=== PATIENT | female | born 1945 | race Caucasian/White ===

== ENCOUNTER → 2017-02-13 | Outpatient (CLI) | payer MEDICARE, OTHER ==
[2017-02-13 16:45] LABS: Anion Gap 10 mmol/L; Blood Urea Nitrogen 26 mg/dL (7-17); Calcium 9.2 mg/dL (8.4-10.2); Carbon Dioxide 33 mmol/L (22-30); Chloride 98 mmol/L (98-107); Glucose 96 mg/dL (74-99); Magnesium 2.4 mg/dL (1.6-2.3); Non-African American GFR(MDRD) >60 (>60 ml/min/1.73 sqM); Phosphorous 4.1 mg/dL (2.5-4.5); Potassium 4.1 mmol/L (3.5-5.1); Sodium 141 mmol/L (137-145)
== END | disposition home or self-care (01) ==
LOC: LABWHC1 15:56
PROVIDERS: ATTEND Internal Medicine Critical Care Medicine
DX: R60.9 Edema, unspecified (principal)
CPT/HCPCS: 36415; 80048; 83735; 84100; 99213

== ENCOUNTER → 2017-07-10 | Outpatient (CLI) | payer MEDICARE, OTHER ==
--- NOTE | 2017-07-10 09:47 | US ---
EXAMINATION TYPE: US abdomen complete DATE OF EXAM: 07/10/2017 COMPARISON: NONE CLINICAL HISTORY: R18.8 Other ascites. COPD, PT ON O2, difficult breathing , pt on steroids for water retention EXAM MEASUREMENTS: Liver Length: 15.2 cm Gallbladder Wall: 0.2 cm CBD: 0.2 cm Spleen: 7.1 cm Right Kidney: 8.5 x 3.5 x 3.6 cm Left Kidney: 9.1 x 4.7 x 5.0 cm Pancreas: Obscured by bowel gas Liver: wnl there is no ascites. Gallbladder: wnl Evidence for sonographic Barroso's sign: No CBD: wnl Spleen: wnl Right Kidney: No hydronephrosis or masses seen Left Kidney: 1.9 x 2.0 x 1.9 cm superior mid pole dromedary hump vs mass Upper IVC: wnl Abd Aorta: Obscured by overlying bowel gas There is no ascites. The liver is homogenous. The intrahepatic portion of the IVC is within normal limits. There is no e vidence of cholelithiasis. Common bile duct is unremarkable. The spleen is unremarkable. Kidneys show normal cortical medullary differentiation, there is a lobular contour to the left kidney. IMPRESSION: Findings within left kidney thought to be due to lobular cortex rather than mass, short i nterval follow-up could be performed to assess for stability or alternatively contrast-enhanced CT or MRI could be performed for additional evaluation. Exam is limited.
== END | disposition home or self-care (01) ==
LOC: RADUSWWP 07:28
PROVIDERS: ATTEND Internal Medicine
DX: R18.8 Other ascites (principal)
CPT/HCPCS: 76700

== ENCOUNTER 2017-09-08 17:04 | Inpatient (IN) | payer MEDICARE, OTHER ==
[2017-09-08] MEDS ORDERED: IPRATROPIUM-ALBUTEROL 3 ML NEB INHALATION STA (18:24)
[2017-09-08] MEDS ORDERED: NITROGLYCERIN OINT 1 INCH/GM PACKET TOPICAL STA (18:24)
[2017-09-08] MEDS ORDERED: SODIUM CHLORIDE 0.9% 1,000 ML IV STA ×2 (18:24)
[2017-09-08] MEDS ORDERED: FUROSEMIDE 10 MG/ML 4 ML VIAL IV STA (18:24)
--- NOTE | 2017-09-08 18:29 | ED ---
SOB HPI - General Chief Complaint: Shortness of Breath Stated Complaint: Fluid retention sent by PCP Time Seen by Provider: 09/08/17 18:09 Source: patient, RN notes reviewed, old records reviewed Mode of arrival: wheelchair Limitations: no limitations - History of Present Illness Initial Comments: 72-year-old female presented to emergency Department chief complaint of shortness of breath and swelling of her abdomen and lower legs that has been worse over the past week. She reports that she has history of COPD. She is on multiple breathing treatments and inhalers. She reports that she's been having any increased productive cough. Patient states that she's had no fever or chills. She reports that she's also noticed an increase in weight gain, stating that her weight was 178 pounds today. Patient states that she has had no abdominal pain, no nausea or vomiting, normal bowel movements and urination. She states that she has had no hemoptysis, denies any upper respiratory congestion or sore throat. Patient has history of skin cancer and glaucoma. - Related Data Home Medications Medication Instructions Recorded Confirmed ALPRAZolam [Xanax] 0.25 mg PO TID PRN 09/08/17 09/08/17 Albuterol Inhaler [Ventolin Hfa 2 puff INHALATION RT-Q6H PRN 09/08/17 09/08/17 Inhaler] Azithromycin 250 mg PO MOWEFR 09/08/17 09/08/17 Budesonide-Formot 160-4.5 Mcg 2 puff INHALATION RT-BID 09/08/17 09/08/17 [Symbicort 160-4.5 Mcg Inhaler] Ipratropium-Albuterol Nebulize 3 ml INHALATION RT-TID 09/08/17 09/08/17 [Duoneb 0.5 mg-3 mg/3 ml Soln] L.acidoph,Paracasei, B.lactis 1 cap PO DAILY 09/08/17 09/08/17 [Probiotic] Loratadine [Claritin] 10 mg PO DAILY 09/08/17 09/08/17 Pramipexole [Mirapex] 0.5 mg PO QAM 09/08/17 09/08/17 Pramipexole [Mirapex] 1 mg PO BID 09/08/17 09/08/17 Spironolactone [Aldactone] 25 mg PO BID 09/08/17 09/08/17 predniSONE 5 mg PO DAILY 09/08/17 09/08/17 Allergies Allergy/AdvReac Type Severity Reaction Status Date / Time No Known Allergies Allergy Verified 09/08/17 19:51 Review of Systems ROS Statement: Those systems with pertinent positive or pertinent negative responses have been documented in the HPI. ROS Other: All systems not noted in ROS Statement are negative. Past Medical History Past Medical History: Cancer, COPD, Eye Disorder Additional Past Medical History / Comment(s): HX OF SKIN CA, GLAUCOMA History of Any Multi-Drug Resistant Organisms: None Reported Past Surgical History: Tonsillectomy Additional Past Surgical History / Comment(s): skin cancer Past Anesthesia/Blood Transfusion Reactions: No Reported Reaction Past Psychological History: Anxiety, Depression Smoking Status: Current some day smoker - Past Family History Son(s) Family Medical History: Deep Vein Thrombosis (DVT) General Exam - General Exam Comments Initial Comments: This is a pleasant 72-year-old female. Limitations: no limitations General appearance: alert, in no apparent distress Head exam: Present: atraumatic, normocephalic, normal inspection Eye exam: Present: normal appearance, PERRL, EOMI. Absent: scleral icterus, conjunctival injection, periorbital swelling ENT exam: Present: normal exam, mucous membranes moist Neck exam: Present: normal inspection. Absent: tenderness, meningismus, lymphadenopathy Respiratory exam: Present: wheezes, rhonchi, decreased breath sounds ( has diminished bilateral lung sounds, diffuse wheezing and rhonchi noted.). Absent : normal lung sounds bilaterally, respiratory distress, rales, stridor Cardiovascular Exam: Present: regular rate, normal rhythm, normal heart sounds. Absent: systolic murmur, diastolic murmur, rubs, gallop, clicks GI/Abdominal exam: Present: soft, distended. Absent: tenderness, guarding, rebound, rigid, normal bowel sounds (Diminished bowel sounds. Patient has a distended abdomen.) Extremities exam: Present: full ROM, normal capillary refill, pedal edema (3+ bilateral pedal edema.), other (She was able to ambulate without difficulty.). Absent: normal inspection, tenderness, joint swelling, calf tenderness Back exam: Present: normal inspection Neurological exam: Present: alert, oriented X3, CN II-XII intact Psychiatric exam: Present: normal affect, normal mood Skin exam: Present: warm, dry, intact, normal color. Absent: rash Course Vital Signs 09/08/17 09/08/17 09/08/17 17:28 18:30 19:19 Temperature 98.1 F Pulse Rate 85 93 91 Respiratory 24 18 Rate Blood Pressure 120/69 128/76 O2 Sat by Pulse 95 98 Oximetry 09/08/17 09/08/17 19:31 20:41 Temperature Pulse Rate 91 96 Respiratory 18 Rate Blood Pressure 132/78 O2 Sat by Pulse 97 Oximetry - Reevaluation(s) Reevaluation #1: 09/08/17 19:47 After patient was taken to x-ray and had to be laid down on the ground she had severe shortening of breath. She does report she feels better sitting up and leaning forward. Patient's lungs were examined she does have decreased lung sounds bilaterally. Medical Decision Making - Medical Decision Making 72-year-old female presents emergency department with increased bilateral leg swelling, increased shortness of breath. She has a history of COPD. Given a DuoNeb treatment. When patient lays backward she has significant dyspnea. Patient also complains of significant abdominal distention over the past few months. CT abdomen and pelvis was performed shows no evidence of any masses. Patient labwork was reviewed and negative for any significant abnormality's. Negative BNP. Negative cardiac enzymes. At this time patient admitted for shortness of breath, orthopnea, pedal edema, and abdominal distention. Patient' s previous pulmonal diseases. Continued with breathing treatments. - Lab Data Result diagrams: 09/08/17 18:40 09/08/17 18:40 Lab Results 09/08/17 09/08/17 09/08/17 Range/Units 18:40 18:40 18:40 WBC 9.5 (3.8-10.6) k/uL RBC 3.99 (3.80-5.40) m/uL Hgb 12.0 (11.4-16.0) gm/dL Hct 39.6 (34.0-46.0) % MCV 99.2 (80.0-100.0) fL MCH 30.2 (25.0-35.0) pg MCHC 30.4 L (31.0-37.0) g/dL RDW 14.0 (11.5-15.5) % Plt Count 348 (150-450) k/uL Neutrophils % 78 % Lymphocytes % 12 % Monocytes % 6 % Eosinophils % 1 % Basophils % 1 % Neutrophils # 7.4 (1.3-7.7) k/uL Lymphocytes # 1.2 (1.0-4.8) k/uL Monocytes # 0.6 (0-1.0) k/uL Eosinophils # 0.1 (0-0.7) k/uL Basophils # 0.1 (0-0.2) k/uL Hypochromasia Slight PT (9.0-12.0) sec INR (<1.2) APTT (22.0-30.0) sec D-Dimer (<0.60) mg/L FEU Sodium 139 (137-145) mmol/L Potassium 4.5 (3.5-5.1) mmol/L Chloride 97 L (98-107) mmol/L Carbon Dioxide 36 H (22-30) mmol/L Anion Gap 6 mmol/L BUN 12 (7-17) mg/dL Creatinine 0.59 (0.52-1.04) mg/dL Est GFR (MDRD) Af Amer >60 (>60 ml/min/1.73 sqM) Est GFR (MDRD) Non-Af >60 (>60 ml/min/1.73 sqM) Glucose 92 (74-99) mg/dL Calcium 9.3 (8.4-10.2) mg/dL Magnesium 2.2 (1.6-2.3) mg/dL Total Bilirubin 0.2 (0.2-1.3) mg/dL AST 19 (14-36) U/L ALT 29 (9-52) U/L Alkaline Phosphatase 77 (38-126) U/L Total Creatine Kinase 78 (30-135) U/L CK-MB (CK-2) 3.5 H* (0.0-2.4) ng/mL CK-MB (CK-2) Rel Index 4.5 Troponin I <0.012 (0.000-0.034) ng/mL NT-Pro-B Natriuret Pep pg/mL Total Protein 6.2 L (6.3-8.2) g/dL Albumin 3.6 (3.5-5.0) g/dL Urine Color Urine Appearance (Clear) Urine pH (5.0-8.0) Ur Specific Vernal (1.001-1.035) Urine Protein (Negative) Urine Glucose (UA) (Negative) Urine Ketones (Negative) Urine Blood (Negative) Urine Nitrite (Negative) Urine Bilirubin (Negative) Urine Urobilinogen (<2.0) mg/dL Ur Leukocyte Esterase (Negative) 09/08/17 09/08/17 09/08/17 Range/Units 18:40 18:40 19:09 WBC (3.8-10.6) k/uL RBC (3.80-5.40) m/uL Hgb (11.4-16.0) gm/dL Hct (34.0-46.0) % MCV (80.0-100.0) fL MCH (25.0-35.0) pg MCHC (31.0-37.0) g/dL RDW (11.5-15.5) % Plt Count (150-450) k/uL Neutrophils % % Lymphocytes % % Monocytes % % Eosinophils % % Basophils % % Neutrophils # (1.3-7.7) k/uL Lymphocytes # (1.0-4.8) k/uL Monocytes # (0-1.0) k/uL Eosinophils # (0-0.7) k/uL Basophils # (0-0.2) k/uL Hypochromasia PT 10.3 (9.0-12.0) sec INR 1.0 (<1.2) APTT 23.5 (22.0-30.0) sec D-Dimer 0.38 (<0.60) mg/L FEU Sodium (137-145) mmol/L Potassium (3.5-5.1) mmol/L Chloride (98-107) mmol/L Carbon Dioxide (22-30) mmol/L Anion Gap mmol/L BUN (7-17) mg/dL Creatinine (0.52-1.04) mg/dL Est GFR (MDRD) Af Amer (>60 ml/min/1.73 sqM) Est GFR (MDRD) Non-Af (>60 ml/min/1.73 sqM) Glucose (74-99) mg/dL Calcium (8.4-10.2) mg/dL Magnesium (1.6-2.3) mg/dL Total Bilirubin (0.2-1.3) mg/dL AST (14-36) U/L ALT (9-52) U/L Alkaline Phosphatase (38-126) U/L Total Creatine Kinase (30-135) U/L CK-MB (CK-2) (0.0-2.4) ng/mL CK-MB (CK-2) Rel Index Troponin I (0.000-0.034) ng/mL NT-Pro-B Natriuret Pep 73 pg/mL Total Protein (6.3-8.2) g/dL Albumin (3.5-5.0) g/dL Urine Color Light Yellow Urine Appearance Clear (Clear) Urine pH 7.5 (5.0-8.0) Ur Specific Vernal 1.007 (1.001-1.035) Urine Protein Negative (Negative) Urine Glucose (UA) Negative (Negative) Urine Ketones Negative (Negative) Urine Blood Negative (Negative) Urine Nitrite Negative (Negative) Urine Bilirubin Negative (Negative) Urine Urobilinogen <2.0 (<2.0) mg/dL Ur Leukocyte Esterase Negative (Negative) 09/08/17 19:29 EKG shows normal sinus rhythm. Ventricular rate 88 bpm. IN interval 1:30 milliseconds. QRS duration 80 ms. QRS T QTc is 382/462 ms. No evidence of ST elevation or T-wave inversion. No evidence of atrial or ventricular arrhythmias. EKG was performed at 1911. - Radiology Data Radiology results: report reviewed CT abdomen and pelvis shows small umbilical hernia, sigmoid diverticulosis, no sign of acute abdomen and pelvis. Atherosclerotic vascular disease. Chest x-ray shows mild pulmonary fibrotic changes. No acute lung disease. No change compared to old exam. Disposition Clinical Impression: Orthopnea, COPD exacerbation, Bilateral edema of lower extremity Disposition: ADMITTED IP TO THIS HOSP Condition: Stable Referrals: Venkata Quarles MD [Primary Care Provider] - 1-2 days Time of Disposition: 21:36
[2017-09-08 18:59] LABS: Basophils # (A) 0.1 k/uL (0-0.2); Basophils % (A) 1 %; CH 30.8; CHCM 31.2; Eosinophils # (A) 0.1 k/uL (0-0.7); Eosinophils % (A) 1 %; HCT 39.6 % (34.0-46.0); HDW 2.44; Hypochromasia Slight; Luc # (Auto) 0.16; Luc % (Auto) 2; Lymphocytes # (A) 1.2 k/uL (1.0-4.8); Lymphocytes % (A) 12 %; MCH 30.2 pg (25.0-35.0); MCHC 30.4 g/dL (31.0-37.0); MCV 99.2 fL (80.0-100.0); Mean Platelet Volume 7.5; Monocytes # (A) 0.6 k/uL (0-1.0); Monocytes % (A) 6 %; Neutrophils # (A) 7.4 k/uL (1.3-7.7); Neutrophils % (A) 78 %; RBC 3.99 m/uL (3.80-5.40); WBC 9.5 k/uL (3.8-10.6); WBC (Perox) 10.02
[2017-09-08 19:14] LABS: Appearance,Urine Clear (Clear); Bilirubin,Urine Negative (Negative); Glucose,Urine (UA) Negative (Negative); Ketones,Urine Negative (Negative); Leukocyte Esterase,Urine Negative (Negative); Nitrite,Urine Negative (Negative); PH, Urine 7.5 (5.0-8.0); Protein,Urine Negative (Negative); Specific Gravity,Urine 1.007 (1.001-1.035); UA Billing (MACRO vs. MICRO) CHEM; Urobilinogen,Urine <2.0 mg/dL (<2.0)
[2017-09-08 19:16] LABS: ALT 29 U/L (9-52); AST 19 U/L (14-36); Alkaline Phosphatase 77 U/L (38-126); Anion Gap 6 mmol/L; Blood Urea Nitrogen 12 mg/dL (7-17); Calcium 9.3 mg/dL (8.4-10.2); Carbon Dioxide 36 mmol/L (22-30); Chloride 97 mmol/L (98-107); Glucose 92 mg/dL (74-99); Magnesium 2.2 mg/dL (1.6-2.3); Non-African American GFR(MDRD) >60 (>60 ml/min/1.73 sqM); Potassium 4.5 mmol/L (3.5-5.1); Sodium 139 mmol/L (137-145); Total Bilirubin 0.2 mg/dL (0.2-1.3); Total Protein 6.2 g/dL (6.3-8.2)
[2017-09-08 19:19] LABS: Creatine Kinase 78 U/L (30-135)
[2017-09-08 19:31] LABS: Troponin I <0.012 ng/mL (0.000-0.034)
[2017-09-08 19:33] LABS: Partial Thromboplastin Time 23.5 sec (22.0-30.0); Prothrombin Time 10.3 sec (9.0-12.0)
[2017-09-08 19:38] LABS: Creatine Kinase MB 3.5 ng/mL (0.0-2.4)
--- NOTE | 2017-09-08 19:52 | XR ---
EXAMINATION TYPE: XR chest 2V DATE OF EXAM: 09/08/2017 COMPARISON: 11/06/2014 HISTORY: Short of breath TECHNIQUE: Frontal and lateral views of the chest are obtained. FINDINGS: There is no heart failure. There is slight coarsening of interstitial markings. There is n o pleural effusion. Thoracic aorta is atheromatous. There are chest leads. Bony thorax is intact. IMPRESSION: Mild pulmonary fibrotic changes. No acute lung disease. No change compared to old exam. No heart failure.
--- NOTE | 2017-09-08 19:54 | XR ---
EXAMINATION TYPE: XR KUB DATE OF EXAM: 09/08/2017 COMPARISON: NONE HISTORY: Abdominal pain TECHNIQUE: Single view FINDINGS: Supine view of the upper abdomen shows no sign of intestinal obstruction or pneumoperitoneu m. There is no sign of pleural effusion. IMPRESSION: Negative limited abdomen exam.
[2017-09-08] MEDS ORDERED: FUROSEMIDE 10 MG/ML 2 ML VIAL IV ONE (20:06)
[2017-09-08] MEDS ORDERED: RX INFO: IV CONTRAST WAS GIVEN 1 EACH MISC MISCELLANE PRN (20:06)
[2017-09-08] MEDS ORDERED: MORPHINE SULFATE 4 MG/ML SYRINGE IVP STA (20:07)
[2017-09-08] MEDS ORDERED: MORPHINE SULFATE 2 MG/ML SYRINGE IVP ONE ×2 (20:34→20:36)
--- NOTE | 2017-09-08 21:25 | CT ---
EXAMINATION TYPE: CT abdomen pelvis w con DATE OF EXAM: 09/08/2017 COMPARISON: NONE HISTORY: Bilateral leg swelling, abdominal distention and SOB CT DLP: 1162.6 mGycm Automated exposure control for dose reduction was used. TECHNIQUE: Helical acquisition of images was performed from the lung bases through the pelvis. CONTRAST: Performed without Oral Contrast and with IV Contrast, patient injected with 100 mL of Omnipaque 300. FINDINGS: The lung bases are clear of consolidation. There is no pleural effusion. Liver shows no focal defect. Spleen pancreas gallbladder appear normal. Bile ducts are not dilated. There is no adrenal mass. Kidneys show satisfactory contrast opacification. There is no hydronephrosi s. There is no retroperitoneal adenopathy. There is no ascites. There are numerous diverticula in the sigmoid colon. Bladder distends smoothly. There is no sign of a pelvic mass. Appendix appears normal . I see no intestinal wall thickening. Bony structures are intact. I see no focal bone destruction. There is a small umbilical hernia that c ontains fat. IMPRESSION: SMALL UMBILICAL HERNIA. SIGMOID DIVERTICULOSIS. NO SIGN OF ACUTE ABDOMEN AND PELVIS. ATHEROSCLEROTIC VASCULAR DISEASE.
[2017-09-08] MEDS ORDERED: IPRATROPIUM-ALBUTEROL 3 ML NEB INHALATION PRN (21:58)
[2017-09-08] MEDS ORDERED: ALBUTEROL NEBULIZED 2.5 MG/3 ML INHALATION PRN (22:02)
[2017-09-08] MEDS ORDERED: ALPRAZolam 0.25 MG TAB PO PRN (22:02)
[2017-09-08] MEDS: FUROSEMIDE 10 MG/ML 4 ML VIAL IV SCH (22:35)
[2017-09-08 23:24] VITALS: BMI 32.7
[2017-09-09] MEDS: methylPREDNISolone SOD SUCCI 125 MG/2 ML VIAL IV SCH ×3 (00:27→13:03)
[2017-09-09 04:36] LABS: Troponin I <0.012 ng/mL (0.000-0.034)
[2017-09-09 04:40] LABS: Creatine Kinase MB 2.8 ng/mL (0.0-2.4)
[2017-09-09] MEDS: FUROSEMIDE 10 MG/ML 4 ML VIAL IV SCH ×3 (06:14→23:06)
[2017-09-09] MEDS: LACTOBACILLUS ACIDOPH & BULGAR 1 EACH PACKET PO SCH (07:17)
[2017-09-09] MEDS: LORATADINE 10 MG TAB PO SCH (07:17)
[2017-09-09] MEDS: ENOXAPARIN 40 MG/0.4 ML SYRINGE SQ SCH (07:17)
[2017-09-09] MEDS: PRAMIPEXOLE 0.5 MG TAB PO SCH (07:17)
[2017-09-09] MEDS: SPIRONOLACTONE 25 MG TAB PO SCH ×2 (07:18→21:43)
[2017-09-09 07:52] LABS: Glucose,Whole Blood 156 mg/dL (75-99)
[2017-09-09] MEDS ORDERED: SYMBICORT 160-4.5 MCG INHALER INHALATION SCH (08:00)
[2017-09-09] MEDS: IPRATROPIUM-ALBUTEROL 3 ML NEB INHALATION SCH ×5 (08:08→19:35)
[2017-09-09] MEDS: CHLORPHEN-HYDROcod 8-10mg/5ml 5 ML ORAL.SYRG PO SCH ×2 (10:30→20:40)
[2017-09-09 11:16] LABS: Troponin I <0.012 ng/mL (0.000-0.034)
[2017-09-09 11:20] LABS: Creatine Kinase MB 2.7 ng/mL (0.0-2.4)
[2017-09-09 11:26] LABS: Glucose,Whole Blood 207 mg/dL (75-99)
--- NOTE | 2017-09-09 11:28 | P.CNPUL ---
History of Present Illness Consult date: 09/09/17 Reason for consult: dyspnea History of present illness: 72-year-old female patient with severe COPD and chronic hypoxic respiratory failure, chronic hypercapnic respiratory failure, cor pulmonale with previous history of right-sided heart failure.. The patient is an FEV1 of 26% of predicted. The patient is coming in to the hospital because of increased fluid overload and lower extremities edema. Overnight the patient received Lasix 40 mg IV every 8 hours and her lower extremities edema has improved significantly. CAT scan of the abdomen and pelvis was done. It showed some mild diverticulosis. There is no evidence of any ascites or any other abnormalities. She has cushingoid features. She is on the prednisone 5 mg by mouth daily basis. She has required multiple steroid treatments over the years for COPD exacerbation and that made her white obese and cushingoid. She has also gained weight. She has history of skin cancer and glaucoma. She probably is a CO2 retainer knowing that she has a chronic metabolic alkalosis with a bicarb level in the serum of 36. A based on blood gas has not been done. She claims that she has a CPAP/BiPAP machine at home which she hasn't been using on a regular basis. Review of Systems Constitutional: Reports daytime sleepiness, Reports fatigue, Reports poor appetite, Reports weakness Eyes: denies blurred vision, denies bulging eye, denies decreased vision Ears: deny: decreased hearing, ear discharge, earache Ears, nose, mouth and throat: Reports as per HPI Cardiovascular: Reports decreased exercise tolerance, Reports dyspnea on exertion, Reports leg edema, Reports shortness of breath Respiratory: Reports cough, Reports dyspnea, Reports sleep apnea, Reports wheezing Gastrointestinal: Reports bloating Genitourinary: Denies dysuria, Denies hematuria Musculoskeletal: bilateral: ankle swelling, absent: ankle pain, ankle stiffness Integumentary: Denies pruritus, Denies rash Neurological: Denies numbness, Denies weakness Psychiatric: Denies anxiety, Denies depression Endocrine: Denies fatigue, Denies weight change Past Medical History Past Medical History: Cancer, COPD, Eye Disorder Additional Past Medical History / Comment(s): Morbid obesity, severe COPD, end- stage with an FEV1 of 26% of predicted, chronic hypercapnic respiratory failure , chronic hypoxic respiratory failure, cor pulmonale, possible obstructive sleep apnea, glucoma, skin cancer, which she notes features related to chronic steroid use History of Any Multi-Drug Resistant Organisms: None Reported Past Surgical History: Tonsillectomy Additional Past Surgical History / Comment(s): skin cancer Past Anesthesia/Blood Transfusion Reactions: No Reported Reaction Past Psychological History: Anxiety, Depression Smoking Status: Current some day smoker - Past Family History Son(s) Family Medical History: Deep Vein Thrombosis (DVT) Medications and Allergies Home Medications Medication Instructions Recorded Confirmed Type ALPRAZolam [Xanax] 0.25 mg PO TID PRN 09/08/17 09/08/17 History Albuterol Inhaler [Ventolin Hfa 2 puff INHALATION RT-Q6H PRN 09/08/17 09/08/17 History Inhaler] Azithromycin 250 mg PO MOWEFR 09/08/17 09/08/17 History Budesonide-Formot 160-4.5 Mcg 2 puff INHALATION RT-BID 09/08/17 09/08/17 History [Symbicort 160-4.5 Mcg Inhaler] Ipratropium-Albuterol Nebulize 3 ml INHALATION RT-TID 09/08/17 09/08/17 History [Duoneb 0.5 mg-3 mg/3 ml Soln] L.acidoph,Paracasei, B.lactis 1 cap PO DAILY 09/08/17 09/08/17 History [Probiotic] Loratadine [Claritin] 10 mg PO DAILY 09/08/17 09/08/17 History Pramipexole [Mirapex] 0.5 mg PO QAM 09/08/17 09/08/17 History Pramipexole [Mirapex] 1 mg PO BID 09/08/17 09/08/17 History Spironolactone [Aldactone] 25 mg PO BID 09/08/17 09/08/17 History predniSONE 5 mg PO DAILY 09/08/17 09/08/17 History Allergies Allergy/AdvReac Type Severity Reaction Status Date / Time No Known Allergies Allergy Verified 09/08/17 23:02 Physical Exam Vitals: Vital Signs Temp Pulse Pulse Pulse Resp BP BP 09/09/17 08:24 88 09/09/17 08:09 88 09/09/17 08:00 94 89 16 09/09/17 07:00 97.8 F 94 16 138/81 09/09/17 00:16 98.1 F 89 20 149/86 09/08/17 22:17 148/78 09/08/17 22:15 51 L 18 09/08/17 20:41 96 18 132/78 09/08/17 19:31 91 09/08/17 19:19 91 09/08/17 18:30 93 18 128/76 09/08/17 17:28 98.1 F 85 24 120/69 Pulse Ox 09/09/17 08:24 09/09/17 08:09 09/09/17 08:00 09/09/17 07:00 99 09/09/17 00:16 92 L 09/08/17 22:17 09/08/17 22:15 09/08/17 20:41 97 09/08/17 19:31 09/08/17 19:19 09/08/17 18:30 98 09/08/17 17:28 95 Intake and Output 09/08/17 09/09/17 09/09/17 22:59 06:59 14:59 Intake Total 200 Balance 200 Intake: Amount of Fluid Infused ( 200 ml) Other: Voiding Method Bedside Commode Bedside Commode # Voids 2 Weight 81.193 kg 81.193 kg Patient Weight 09/10/17 06:59 Weight 81.193 kg Morbidly obese, cushingoid features, calm and comfortable, not in acute distress or distress. She is arousable. She is awake and alert and she is following commands and answering questions.Head exam was generally normal. There was no scleral icterus or corneal arcus. Mucous membranes were moist. Neck is short and supple and the patient is a significant crowding of the posterior oropharynx with a Mallampati class IV. Lung sounds are diminished bilaterally along with some scattered expiratory wheezes throughout the lung his bilaterally. No dullness to percussion. No crackles. Heart sounds are positive for S1-S2, no cervical murmurs appreciated.Cardiac exam revealed the PMI to be normally situated and sized. The rhythm was regular and no extrasystoles were noted during several minutes of auscultation. The first and second heart sounds were normal and physiologic splitting of the second heart sound was noted. There were no murmurs, rubs, clicks, or gallops.Abdominal exam revealed normal bowel sounds. The abdomen was soft, non-tender, and without masses, organomegaly, or appreciable enlargement of the abdominal aorta. The patient has a tiny umbilical hernia. Extremities reveal trace edema and there is no cyanosis or clubbing. Neurologically patient is awake and alert and there is no focal neurological deficit.Examination of the skin revealed no evidence of significant rashes, suspicious appearing nevi or other concerning lesions. Skeletal examination shows no arthritis or joint deformities Results - Laboratory Findings CBC and BMP: 09/08/17 18:40 09/08/17 18:40 PT/INR, D-dimer PT 10.3 sec (9.0-12.0) 09/08/17 18:40 INR 1.0 (<1.2) 09/08/17 18:40 D-Dimer 0.38 mg/L FEU (<0.60) 09/08/17 18:40 Abnormal lab findings: Abnormal Labs 09/08/17 09/08/17 09/08/17 18:40 18:40 18:40 MCHC 30.4 L Chloride 97 L Carbon Dioxide 36 H POC Glucose (mg/dL) CK-MB (CK-2) 3.5 H* Total Protein 6.2 L 09/09/17 09/09/17 09/09/17 03:42 07:39 10:15 MCHC Chloride Carbon Dioxide POC Glucose (mg/dL) 156 H CK-MB (CK-2) 2.8 H* 2.7 H* Total Protein - Diagnostic Findings Chest x-ray: image reviewed Assessment and Plan Plan: Assessment 1 severe COPD with a baseline FEV1 of 26% of predicted consistent with advanced/ severe COPD 2 chronic hypoxic respiratory failure 3 chronic hypercapnic respiratory failure, rule out a component of CO2 narcosis 4 cor pulmonale with signs of right-sided heart failure with trace edema in lower extremities bilaterally 5 abdominal distention without evidence of ascites or fluid accumulation, please refer to the CAT scan of the abdomen and pelvis 6 trace lower extremity edema 7 obesity with cushingoid features related to chronic steroid use 8 previous history of smoking 9 skin cancer 10 glucoma Plan Overall performance and functional status is extremely poor. COPD is advanced and end-stage. Continue diuresis for another 24 hours. Obtain echocardiogram. Obtain a baseline blood gases assess acid-base status. Asked the patient to bring in any CPAP or BiPAP machine that she can have at home for me to check. She may benefit from a a AVAPS machine especially if she turns out to be a chronic CO2 retainer with hypercapnic respiratory failure.
[2017-09-09 12:24] LABS: ABG Base Excess 9.4 mmol/L; ABG HCO3 34 mmol/L (21-25); ABG PCO2 51 mmHg (35-45); ABG PH 7.44 (7.35-7.45); ABG PO2 74 mmHg (83-108); ABG TCO2 35 mmol/L (19-24)
[2017-09-09] MEDS: PRAMIPEXOLE 1 MG TAB PO SCH ×2 (13:03→20:35)
--- NOTE | 2017-09-09 14:52 | HP ---
HISTORY AND PHYSICAL DATE OF ADMISSION: 09/08/2017 PRESENTING COMPLAINT: Short of breath, edema. HISTORY OF PRESENTING COMPLAINT: This is a pleasant 72-year-old patient I am seeing this morning. Follows with Dr. 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 Ramirez. Patient's son and daughter at the bedside. Chronic stable medical conditions include anxiety, depression, restless legs syndrome, obesity, on home oxygen 3 to 4 L and cor pulmonale. Patient presents is steroid dependent. Presents with worsening edema in the lower extremities and distention of the belly, more short of breath, cough. Patient does sleep in a recliner. Denies any fever. Patient is given IV Lasix to which she is feeling better. REVIEW OF SYSTEMS: CONSTITUTIONAL: Tired. HEENT: None. RESPIRATORY: As above. CARDIOVASCULAR: As above. No chest pain. GASTROINTESTINAL: None. GENITOURINARY: None. MUSCULOSKELETAL: None. HEMATOLOGICAL: None. LYMPHATICS: None. PSYCHIATRY: Some anxiety. NEUROLOGICAL: Restless legs syndrome. PAST MEDICAL HISTORY: Anxiety, depression, restless legs syndrome, COPD, obesity, home oxygen 3 to 4 L, cor pulmonale. PAST SURGICAL HISTORY: Tonsillectomy, skin cancer. SOCIAL HISTORY: The patient stopped smoking 3 weeks ago. Averaged about 2 packs a day for 55 years, . FAMILY HISTORY: DVT. HOME MEDICATIONS: 1. Prednisone 5 mg a day. 2. Aldactone 25 mg p.o. b.i.d. 3. Mirapex 1 mg b.i.d. and 0.5 mg in the morning 0.5 mg a day. 4. Claritin 10 mg a day. 5. Probiotic 1 capsule p.o. daily. 6. DuoNeb t.i.d. 7. Symbicort 160/4.5 two puffs b.i.d. 8. Topamax 250 mg Friday, Friday and Friday. 9. Ventolin 2 puffs q.6 p.r.n. 10.Xanax 0.25 p.o. t.i.d. p.r.n. ALLERGIES: None. PHYSICAL EXAMINATION: temperature 98.1, pulse 65, respiratory rate 24, blood pressure 125/69, pulse ox 98% on 4 L. GENERAL APPEARANCE: Obesity, BMI 32.3, short of breath. EYES: Pupils equal, conjunctivae normal. HEENT: Oral cavity normal. NECK: JVD raised. Mass not palpable. RESPIRATORY: Effort increased. LUNGS: Diminished breath sounds. CARDIOVASCULAR: First and sounds, no edema present. Abdomen is slightly distended, soft, liver and spleen not palpable. LYMPHATIC: No lymph palpable in neck or axillae. PSYCHIATRY: Alert and oriented x3. Mood is slightly anxious-appearing. NEUROLOGICAL: Pupils equal, cranial nerves grossly intact. Power and sensation grossly intact. ENT: Nasal cannula in place. INVESTIGATIONS: White count 9.5, hemoglobin 12, potassium 4.5. BUN and creatinine are normal. Troponin less than 0.012 x3. ProBNP 73. EKG normal sinus rhythm. CT scan of the abdomen and pelvis showing sigmoid diverticulosis. ASSESSMENT: 1. Acute on chronic cor pulmonale exacerbation from underlying chronic obstructive pulmonary disease. 2. Acute chronic obstructive pulmonary disease exacerbation in an ex-smoker. 3. Anxiety-depression not otherwise specified. 4. Chronic restless legs syndrome. 5. Obesity; body mass index 32.3. 6. Chronic hypoxic and hypercapnic respiratory failure from underlying chronic obstructive pulmonary disease. PLAN: Patient is put on IV Lasix. Home medications resumed, put on nebulized bronchodilators, IV steroids. Care was discussed at length with the patient. Daughter is at the bedside. Questions were answered. Also, Dr. Capellan from Pulmonary consulted. I do not see any need for antibiotics. Will follow. MMODL / IJN: [id number] /
[2017-09-09] MEDS: BUDESONIDE 1 MG/2 ML NEBU INHALATION SCH ×2 (15:29→19:35)
[2017-09-09 17:21] LABS: Glucose,Whole Blood 144 mg/dL (75-99)
[2017-09-09] MEDS: INSULIN LISPRO (humaLOG) 300 UNIT/3 ML VIAL SQ SCH ×2 (17:34→20:39)
[2017-09-09] MEDS: methylPREDNISolone SOD SUCCI 40 MG/ML 1 ML VIAL IV SCH ×2 (17:34→23:06)
[2017-09-09 19:54] LABS: Hemoglobin A1C 5.5 % (4.2-6.1)
[2017-09-09 20:35] LABS: Glucose,Whole Blood 138 mg/dL (75-99)
[2017-09-10] MEDS: IPRATROPIUM-ALBUTEROL 3 ML NEB INHALATION SCH ×7 (00:28→23:50)
[2017-09-10] MEDS: FUROSEMIDE 10 MG/ML 4 ML VIAL IV SCH ×2 (06:16→12:19)
[2017-09-10] MEDS: BUDESONIDE 1 MG/2 ML NEBU INHALATION SCH ×2 (07:16→20:06)
[2017-09-10 07:17] LABS: Glucose,Whole Blood 162 mg/dL (75-99)
[2017-09-10] MEDS: LACTOBACILLUS ACIDOPH & BULGAR 1 EACH PACKET PO SCH (08:25)
--- NOTE | 2017-09-10 08:25 | ECHOF ---
Referral Reason:cORPULMONALE MEASUREMENTS -------- HEIGHT: 157.5 cm WEIGHT: 79.8 kg BP: IVSd: 1.2 cm (0.6 - 1.1) LVIDd: 3.8 cm (3.9 - 5.3) LVPWd: 0.9 cm (0.6 - 1.1) IVSs: 1.3 cm LVIDs: 2.9 cm LVPWs: 1.7 cm MV E Jluis: 0.51 m/s MV DecT: 299 ms MV A Jluis: 0.75 m/s MV E/A Ratio: 0.68 FINDINGS -------- Sinus rhythm. This was a techncally difficult study with suboptimal views, , Definity utilized for enhancement of images. There is mild concentric left ventricular hypertrophy. Overall left ventricular systolic function is normal with, an EF between 55 - 60 %. The right ventricle is normal in size. The left atrial size is normal. The right atrial size is normal. 1.5MG OF DEFINITY UTLIZED: 2 OR MORE WALL SEGMENTS NOT VISUALIZED. The aortic valve was not well visualized. Mild mitral regurgitation is present. Mild tricuspid regurgitation present. There is no evidence of pulmonary hypertension. The right ventricular systolic pressure, as measured by Doppler, is {RVSP}. There is no pulmonic regurgitation present. The aortic root size is normal. There is no pericardial effusion. CONCLUSIONS -------- 1. This was a techncally difficult study with suboptimal views, , Definity utilized for enhancement of images. 2. There is no pulmonic regurgitation present. 3. The aortic root size is normal. 4. There is no pericardial effusion. 5. There is mild concentric left ventricular hypertrophy. 6. Overall left ventricular systolic function is normal with, an EF between 55 - 60 %. 7. 1.5MG OF DEFINITY UTLIZED: 2 OR MORE WALL SEGMENTS NOT VISUALIZED. 8. The aortic valve was not well visualized. 9. Mild mitral regurgitation is present. 10. Mild tricuspid regurgitation present. 11. There is no evidence of pulmonary hypertension. 12. The right ventricular systolic pressure, as measured by Doppler, is {RVSP}. RECEIVER: Irma Lozano RDCS
[2017-09-10] MEDS: INSULIN LISPRO (humaLOG) 300 UNIT/3 ML VIAL SQ SCH ×4 (08:39→21:09)
[2017-09-10] MEDS: methylPREDNISolone SOD SUCCI 40 MG/ML 1 ML VIAL IV SCH ×3 (08:40→23:57)
[2017-09-10] MEDS: CHLORPHEN-HYDROcod 8-10mg/5ml 5 ML ORAL.SYRG PO SCH ×2 (08:41→21:09)
[2017-09-10] MEDS: ENOXAPARIN 40 MG/0.4 ML SYRINGE SQ SCH (08:42)
[2017-09-10] MEDS: LORATADINE 10 MG TAB PO SCH (08:43)
[2017-09-10] MEDS: SPIRONOLACTONE 25 MG TAB PO SCH ×2 (08:44→21:06)
[2017-09-10] MEDS: PRAMIPEXOLE 0.5 MG TAB PO SCH (08:45)
[2017-09-10] MEDS ORDERED: AZITHROMYCIN 250 MG TAB PO SCH (09:00)
--- NOTE | 2017-09-10 11:04 | P.PN ---
Subjective Progress Note Date: 09/10/17 72-year-old female patient with severe COPD and chronic hypoxic respiratory failure, chronic hypercapnic respiratory failure, cor pulmonale with previous history of right-sided heart failure.. The patient is an FEV1 of 26% of predicted. The patient is coming in to the hospital because of increased fluid overload and lower extremities edema. Overnight the patient received Lasix 40 mg IV every 8 hours and her lower extremities edema has improved significantly. CAT scan of the abdomen and pelvis was done. It showed some mild diverticulosis. There is no evidence of any ascites or any other abnormalities. She has cushingoid features. She is on the prednisone 5 mg by mouth daily basis. She has required multiple steroid treatments over the years for COPD exacerbation and that made her white obese and cushingoid. She has also gained weight. She has history of skin cancer and glaucoma. She probably is a CO2 retainer knowing that she has a chronic metabolic alkalosis with a bicarb level in the serum of 36. A based on blood gas has not been done. She claims that she has a CPAP/BiPAP machine at home which she hasn't been using on a regular basis. On 09/10/2017 the patient is being seen in follow-up. She is still being diuresis with IV Lasix. Electrodes are not out yet. Meanwhile she has lost a kilogram of weight which is probably fluids. Echocardiogram showed a preserved LV function. No evidence of any pulmonary hypertension. The patient also brought in her respiratory assisted device at home and this turner machine operator to be a Trilogy ventilator which is set in avaps mode. The target tidal volume is 400. The patient is using a Phyllis review full face mask. This was approved to her on the basis of her chronic hypercapnic respiratory failure due to recurrent COPD exacerbation. Her blood. This showed a well compensated chronic hypercapnic respiratory failure with a pCO2 of 51. Objective - Vital Signs Vital signs: Vital Signs Temp 97.5 F L 09/10/17 07:00 Pulse 98 09/10/17 08:00 Resp 18 09/10/17 08:00 BP 129/70 09/10/17 07:00 Pulse Ox 90 L 09/10/17 07:00 Intake & Output 09/09/17 09/10/17 09/10/17 18:59 06:59 18:59 Intake Total 240 940 Output Total 800 Balance -560 940 Weight 80.1 kg Intake: Oral 240 940 Output: Urine 800 Other: Voiding Method Bedside Commode Bedside Commode Bedside Commode # Voids 3 2 3 - Exam Morbidly obese, cushingoid features, calm and comfortable, not in acute distress or distress. She is arousable. She is awake and alert and she is following commands and answering questions.Head exam was generally normal. There was no scleral icterus or corneal arcus. Mucous membranes were moist. Neck is short and supple and the patient is a significant crowding of the posterior oropharynx with a Mallampati class IV. Lung sounds are diminished bilaterally along with some scattered expiratory wheezes throughout the lung his bilaterally. No dullness to percussion. No crackles. Heart sounds are positive for S1-S2, no cervical murmurs appreciated.Cardiac exam revealed the PMI to be normally situated and sized. The rhythm was regular and no extrasystoles were noted during several minutes of auscultation. The first and second heart sounds were normal and physiologic splitting of the second heart sound was noted. There were no murmurs, rubs, clicks, or gallops.Abdominal exam revealed normal bowel sounds. The abdomen was soft, non-tender, and without masses, organomegaly, or appreciable enlargement of the abdominal aorta. The patient has a tiny umbilical hernia. Extremities reveal trace edema and there is no cyanosis or clubbing. Neurologically patient is awake and alert and there is no focal neurological deficit.Examination of the skin revealed no evidence of significant rashes, suspicious appearing nevi or other concerning lesions. Skeletal examination shows no arthritis or joint deformities - Labs CBC & Chem 7: 09/08/17 18:40 09/08/17 18:40 Labs: Abnormal Lab Results - Last 24 Hours (Table) 09/09/17 09/09/17 09/09/17 Range/Units 10:15 11:17 12:17 ABG pCO2 51 H (35-45) mmHg ABG pO2 74 L (83-108) mmHg ABG HCO3 34 H (21-25) mmol/L ABG Total CO2 35 H (19-24) mmol/L POC Glucose (mg/dL) 207 H (75-99) mg/dL CK-MB (CK-2) 2.7 H* (0.0-2.4) ng/mL 09/09/17 09/09/17 09/10/17 Range/Units 17:20 20:21 06:59 ABG pCO2 (35-45) mmHg ABG pO2 (83-108) mmHg ABG HCO3 (21-25) mmol/L ABG Total CO2 (19-24) mmol/L POC Glucose (mg/dL) 144 H 138 H 162 H (75-99) mg/dL CK-MB (CK-2) (0.0-2.4) ng/mL Microbiology - Last 24 Hours (Table) 09/08/17 18:40 Blood Culture - Preliminary Blood No Growth after 24 hours Assessment and Plan Plan: Assessment 1 severe COPD with a baseline FEV1 of 26% of predicted consistent with advanced/ severe COPD 2 chronic hypoxic respiratory failure 3 chronic hypercapnic respiratory failure, rule out a component of CO2 narcosis , the blood gases was obtained showed no evidence of any acute hypercapnic respiratory failure and the findings are essentially chronic well compensated hypercapnic respiratory failure. 4 cor pulmonale with signs of right-sided heart failure with trace edema in lower extremities bilaterally 5 abdominal distention without evidence of ascites or fluid accumulation, please refer to the CAT scan of the abdomen and pelvis 6 trace lower extremity edema 7 obesity with cushingoid features related to chronic steroid use 8 previous history of smoking 9 skin cancer 10 glucoma Plan The patient is doing well. Will continue diuretics for another 24 hours as long as the renal function holds and electrodes are within normal limits. Based on this, I'm still awaiting the electrodes to be up from today. Meanwhile , I checked this patient's trilogy ventilator. Further adjustments will be done outpatient basis. I think she would benefit from a nasal pillow instead of a full face mask. Echocardiogram was noted. She has advanced COPD with an FEV1 of 26% of predicted. She has chronic hypercapnic respiratory failure with compensated status based on the blood gases.
[2017-09-10 11:41] LABS: Glucose,Whole Blood 119 mg/dL (75-99)
[2017-09-10 11:46] LABS: Anion Gap 11 mmol/L; Blood Urea Nitrogen 30 mg/dL (7-17); Calcium 9.3 mg/dL (8.4-10.2); Carbon Dioxide 39 mmol/L (22-30); Chloride 91 mmol/L (98-107); Glucose 98 mg/dL (74-99); Non-African American GFR(MDRD) >60 (>60 ml/min/1.73 sqM); Potassium 3.8 mmol/L (3.5-5.1); Sodium 141 mmol/L (137-145)
[2017-09-10] MEDS: PRAMIPEXOLE 1 MG TAB PO SCH ×2 (12:19→21:06)
[2017-09-10 17:11] LABS: Glucose,Whole Blood 134 mg/dL (75-99)
--- NOTE | 2017-09-10 20:08 | P.PN ---
Progress Note - Text Progress Note Date: 09/10/17 DATE OF SERVICE: 09/10/2017 PRESENTING COMPLAINT: Shortness of breath with edema HISTORY OF PRESENT ILLNESS: 72-year-old female presented with worsening lower extremity edema and abdominal distention, shortness of breath and a cough. Currently sleeps in a recliner. Admitted with acute on chronic cor pulmonale exacerbation. INTERVAL HISTORY: 09/10/2017: Patient seen in follow-up appears ill sitting up in her bed, breathing is better continues to receive IV Lasix, nebulized bronchodilators, IV steroids. Tolerating her diet ambulatory to and from the bathroom with assistance. States she feels better today. REVIEW OF SYSTEMS: Done for constitutional ,cardiovascular, GI, pulmonary with relevant findings as above. CURRENT MEDICATIONS Albuterol, DuoNeb, Xanax, Zithromax, Pulmicort, doesn't neck, Lovenox, Lasix, Humalog insulin, Solu-Medrol, Mirapex, Aldactone. PHYSICAL EXAM VITAL SIGNS: Temperature 97.5, pulse 98, respiratory rate 18, blood pressure 129/70, oxygen saturation 90% on 4 L GENERAL APPEARANCE: . Lying in bed, appears comfortable EYES: Pupils equal. Conjunctiva normal. NECK: JVD not raised. Mass not palpable. RESPIRATORY: Respiratory increased. Lungs scattered expiratory wheezing, diminished to the bases CARDIOVASCULAR: First and second sounds normal. No edema. ABDOMEN: Soft. Liver and spleen not palpable. No tenderness. No mass palpable. PSYCHIATRY: Alert and oriented x3. Mood and affect normal. INVESTIGATIONS: Sodium 141, potassium 3.8, chloride 91, carbon dioxide 39, Accu-Cheks noted. ASSESSMENT: -Acute on chronic cor pulmonale exacerbation from underlying chronic obstructive pulmonary disease, slow to respond -Acute chronic obstructive pulmonary disease exacerbation and an ex-smoker, slow to respond -Anxiety depression not otherwise specified. -Chronic less restless leg syndrome. -Obesity body mass index 32.3. -Chronic hypoxic and hypercapnic respiratory failure compensated status from underlying chronic obstructive pulmonary disease. PLAN: No infectious process present, IV antibiotics not necessary, continue nebulized bronchodilators, IV steroids and IV diuretics. Plan of care discussed with the patient the bedside she is in agreement. We will continue to follow closely. [employer]IO [employer]IC statement: Patient was seen and examined by nurse practitioner Radha Bhardwaj and all elements of the case discussed with attending Dr. Stein
[2017-09-10 20:42] LABS: Glucose,Whole Blood 140 mg/dL (75-99)
--- NOTE | 2017-09-10 22:23 | PN ---
PROGRESS NOTE DATE OF SERVICE: 09/10/2017. ATTENDING NOTE: Patient was seen and examined by me. I discussed with my nurse practitioner, Ms. Bhardwaj. Patient admitted with cor pulmonale exacerbation on IV Lasix, feeling better, did tolerate some diet. EXAMINATION: Afebrile, pulse 98, blood pressure 129/70, pulse ox 98% on 4L. LUNGS: Decreased breath sounds. Decreased edema. Two-D echocardiogram shows EF of 55% to 60%. ASSESSMENT: Acute on chronic cor pulmonale exacerbation, improving with Lasix. Continue with Lasix. Hopefully patient can be switched over to p.o. Lasix by tomorrow. Care was discussed with the patient. I do not see any need for antibiotics. Will discontinue the same. MMODL / IJN: [id number] /
[2017-09-11] MEDS: IPRATROPIUM-ALBUTEROL 3 ML NEB INHALATION SCH ×6 (03:40→23:21)
[2017-09-11 07:32] LABS: Glucose,Whole Blood 121 mg/dL (75-99)
[2017-09-11] MEDS: BUDESONIDE 1 MG/2 ML NEBU INHALATION SCH ×2 (07:32→19:26)
[2017-09-11 07:58] LABS: Blood Urea Nitrogen 31 mg/dL (7-17); Calcium 9.5 mg/dL (8.4-10.2); Chloride 90 mmol/L (98-107); Glucose 130 mg/dL (74-99); Non-African American GFR(MDRD) >60 (>60 ml/min/1.73 sqM); Potassium 4.4 mmol/L (3.5-5.1); Sodium 138 mmol/L (137-145)
[2017-09-11] MEDS: INSULIN LISPRO (humaLOG) 300 UNIT/3 ML VIAL SQ SCH ×4 (08:03→21:08)
[2017-09-11 08:05] LABS: Anion Gap 11 mmol/L; Carbon Dioxide 37 mmol/L (22-30)
[2017-09-11] MEDS: methylPREDNISolone SOD SUCCI 40 MG/ML 1 ML VIAL IV SCH (08:05)
[2017-09-11] MEDS: CHLORPHEN-HYDROcod 8-10mg/5ml 5 ML ORAL.SYRG PO SCH ×2 (08:05→21:07)
[2017-09-11] MEDS: LORATADINE 10 MG TAB PO SCH (08:06)
[2017-09-11] MEDS: PRAMIPEXOLE 0.5 MG TAB PO SCH (08:06)
[2017-09-11] MEDS: ENOXAPARIN 40 MG/0.4 ML SYRINGE SQ SCH (08:06)
[2017-09-11] MEDS: FUROSEMIDE 10 MG/ML 4 ML VIAL IV SCH (08:06)
[2017-09-11] MEDS: SPIRONOLACTONE 25 MG TAB PO SCH ×2 (08:06→21:07)
[2017-09-11] MEDS: LACTOBACILLUS ACIDOPH & BULGAR 1 EACH PACKET PO SCH (08:07)
--- NOTE | 2017-09-11 11:01 | P.PN ---
<Padmini Valdez M - Last Filed: 09/11/17 10:47> Subjective Progress Note Date: 09/11/17 Principal diagnosis: Severe COPD with a baseline FEV1 of 26% of predicted 72-year-old female patient with severe COPD and chronic hypoxic respiratory failure, chronic hypercapnic respiratory failure, cor pulmonale with previous history of right-sided heart failure.. The patient is an FEV1 of 26% of predicted. The patient is coming in to the hospital because of increased fluid overload and lower extremities edema. Overnight the patient received Lasix 40 mg IV every 8 hours and her lower extremities edema has improved significantly. CAT scan of the abdomen and pelvis was done. It showed some mild diverticulosis. There is no evidence of any ascites or any other abnormalities. She has cushingoid features. She is on the prednisone 5 mg by mouth daily basis. She has required multiple steroid treatments over the years for COPD exacerbation and that made her white obese and cushingoid. She has also gained weight. She has history of skin cancer and glaucoma. She probably is a CO2 retainer knowing that she has a chronic metabolic alkalosis with a bicarb level in the serum of 36. A based on blood gas has not been done. She claims that she has a CPAP/BiPAP machine at home which she hasn't been using on a regular basis. On 09/10/2017 the patient is being seen in follow-up. She is still being diuresis with IV Lasix. Electrodes are not out yet. Meanwhile she has lost a kilogram of weight which is probably fluids. Echocardiogram showed a preserved LV function. No evidence of any pulmonary hypertension. The patient also brought in her respiratory assisted device at home and this shank turner to be a Trilogy ventilator which is set in avaps mode. The target tidal volume is 400. The patient is using a Phyllis review full face mask. This was approved to her on the basis of her chronic hypercapnic respiratory failure due to recurrent COPD exacerbation. Her blood. This showed a well compensated chronic hypercapnic respiratory failure with a pCO2 of 51. On 09/11/2017 patient is complaining of increased shortness of breath with activity and even eating. Her lungs sounds show decreased air entry bilaterally , but no rhonchi, no wheezing, no rails. Patient did not have any significant diuresis with the Lasix, in fact she is +338 in the last 24 hours. Yesterday we decreased the Lasix to once daily due to evidence of volume contraction alkalosis on BMP from 09/10/2017. CO2 was up to 39, with B UN of 30 and creatinine of 0.77. She did not wear her Trilogy ventilator last night despite our recommendation. She is currently sitting up in bed, does not appear to be short of breath with normal conversation. She denies any sputum production. Currently on 4 L oxygen per nasal cannula with O2 saturations around 91-96%. He has been afebrile through the night. Objective - Vital Signs Vital signs: Vital Signs Temp 97.2 F L 09/11/17 07:00 Pulse 101 H 09/11/17 08:00 Resp 22 09/11/17 08:00 BP 176/86 09/11/17 07:00 Pulse Ox 91 L 09/11/17 07:00 Intake & Output 09/10/17 09/11/17 09/11/17 18:59 06:59 18:59 Intake Total 240 100 Output Total 2 Balance 240 98 Intake: Oral 240 100 Output: Stool 2 Other: Voiding Method Bedside Commode Bedside Commode Bedside Commode # Voids 600 1 3 - Exam Morbidly obese, cushingoid features, calm and comfortable, not in acute distress or distress. She is arousable. She is awake and alert and she is following commands and answering questions.Head exam was generally normal. There was no scleral icterus or corneal arcus. Mucous membranes were moist. Neck is short and supple and the patient is a significant crowding of the posterior oropharynx with a Mallampati class IV. Lung sounds are diminished bilaterally with no wheezes, no rhonchi, no rales . No dullness to percussion. No crackles. Heart sounds are positive for S1-S2, no cervical murmurs appreciated.Cardiac exam revealed the PMI to be normally situated and sized. The rhythm was regular and no extrasystoles were noted during several minutes of auscultation. The first and second heart sounds were normal and physiologic splitting of the second heart sound was noted. There were no murmurs, rubs, clicks, or gallops.Abdominal exam revealed normal bowel sounds. The abdomen was soft, non-tender, and without masses, organomegaly, or appreciable enlargement of the abdominal aorta. The patient has a tiny umbilical hernia. Extremities reveal trace edema and there is no cyanosis or clubbing. Neurologically patient is awake and alert and there is no focal neurological deficit.Examination of the skin revealed no evidence of significant rashes, suspicious appearing nevi or other concerning lesions. Skeletal examination shows no arthritis or joint deformities - Labs CBC & Chem 7: 09/08/17 18:40 09/11/17 07:14 Labs: Abnormal Lab Results - Last 24 Hours (Table) 09/10/17 09/10/17 09/10/17 Range/Units 11:12 11:14 17:00 Chloride 91 L (98-107) mmol/L Carbon Dioxide 39 H (22-30) mmol/L BUN 30 H (7-17) mg/dL Glucose (74-99) mg/dL POC Glucose (mg/dL) 119 H 134 H (75-99) mg/dL 09/10/17 09/11/17 09/11/17 Range/Units 20:40 07:09 07:14 Chloride 90 L (98-107) mmol/L Carbon Dioxide 37 H (22-30) mmol/L BUN 31 H (7-17) mg/dL Glucose 130 H (74-99) mg/dL POC Glucose (mg/dL) 140 H 121 H (75-99) mg/dL Microbiology - Last 24 Hours (Table) 09/08/17 18:40 Blood Culture - Preliminary Blood No Growth after 48 hours Assessment and Plan Plan: Assessment and Plan Plan: Assessment 1 severe COPD with a baseline FEV1 of 26% of predicted consistent with advanced/ severe COPD 2 chronic hypoxic respiratory failure 3 chronic hypercapnic respiratory failure, rule out a component of CO2 narcosis , the blood gases was obtained showed no evidence of any acute hypercapnic respiratory failure and the findings are essentially chronic well compensated hypercapnic respiratory failure. 4 cor pulmonale with signs of right-sided heart failure with trace edema in lower extremities bilaterally 5 abdominal distention without evidence of ascites or fluid accumulation, please refer to the CAT scan of the abdomen and pelvis 6 trace lower extremity edema, improved 7 obesity with cushingoid features related to chronic steroid use 8 previous history of smoking 9 skin cancer 10 glaucoma Plan The patient is doing well, although she complains of increased shortness of breath with activity which she states is worse today than yesterday. Lung sounds are with diminished air entry bilaterally but no wheezes, no rhonchi or rales. Continue with DuoNeb, Pulmicort nebulizer treatments. No significant sputum production, no JVD, bilateral lower leg edema has improved Yesterday we decreased the Lasix to once daily in view of evidence for volume contraction alkalosis. I checked this patient's trilogy ventilator. Further adjustments will be done outpatient basis. I think she would benefit from a nasal pillow instead of a full face mask. Echocardiogram was noted. She has advanced COPD with an FEV1 of 26% of predicted. She has chronic hypercapnic respiratory failure with compensated status based on the blood gases. <Harrison Capellan - Last Filed: 09/11/17 13:14> Objective - Vital Signs Vital signs: Vital Signs Temp 97.2 F L 09/11/17 07:00 Pulse 101 H 09/11/17 08:00 Resp 22 09/11/17 08:00 BP 176/86 09/11/17 07:00 Pulse Ox 91 L 09/11/17 07:00 Intake & Output 09/10/17 09/11/17 09/11/17 18:59 06:59 18:59 Intake Total 240 100 Output Total 2 Balance 240 98 Intake: Oral 240 100 Output: Stool 2 Other: Voiding Method Bedside Commode Bedside Commode Bedside Commode # Voids 600 1 3 - Labs CBC & Chem 7: 09/08/17 18:40 09/11/17 07:14 Labs: Abnormal Lab Results - Last 24 Hours (Table) 09/10/17 09/10/17 09/11/17 Range/Units 17:00 20:40 07:09 Chloride (98-107) mmol/L Carbon Dioxide (22-30) mmol/L BUN (7-17) mg/dL Glucose (74-99) mg/dL POC Glucose (mg/dL) 134 H 140 H 121 H (75-99) mg/dL 09/11/17 09/11/17 Range/Units 07:14 11:18 Chloride 90 L (98-107) mmol/L Carbon Dioxide 37 H (22-30) mmol/L BUN 31 H (7-17) mg/dL Glucose 130 H (74-99) mg/dL POC Glucose (mg/dL) 131 H (75-99) mg/dL Microbiology - Last 24 Hours (Table) 09/08/17 18:40 Blood Culture - Preliminary Blood No Growth after 48 hours Assessment and Plan Plan: I'm seeing and in a joint evaluation along with the nurse practitioner. The patient is doing well. She has been adequately diuresed. Echocardiac José Miguel showed no evidence of any significant pulmonary hypertension. LV function is within normal limits. Lower extremity edema is improved. She has chronic exertional dyspnea which is at his baseline. Discharge planning is in progress and possible home within next 24 hours.
[2017-09-11 11:36] LABS: Glucose,Whole Blood 131 mg/dL (75-99)
[2017-09-11] MEDS: PRAMIPEXOLE 1 MG TAB PO SCH ×2 (12:33→21:07)
--- NOTE | 2017-09-11 16:07 | PN ---
PROGRESS NOTE DATE OF SERVICE: 09/11/2017 I am covering for Dr. Stein. HISTORY OF PRESENT ILLNESS: This 72-year-old woman who was admitted with COPD acute exacerbation acute on chronic, cor pulmonale, also had history of depression also. The patient is still having significant shortness of breath especially on ambulation. The patient is on Solu- Medrol 40 IV q.8h at this time. The patient is also on multiple breathing treatments including Pulmicort also. The most recent chest x-ray which was done on 9 shows some mild fibrotic changes. There is no acute changes. CT scan of the abdomen was also done recently which again showed a small umbilical hernia, atherosclerotic vascular disease. PAST MEDICAL HISTORY: Reviewed. REVIEW OF SYSTEMS: CARDIOVASCULAR: No angina or palpitations. Respiration: As mentioned earlier. GASTROINTESTINAL : As mentioned earlier. no dysuria. Nervous system: No numbness, weakness. CURRENT MEDICATIONS: Reviewed and include: 1. Ventolin 2.5 q.i.d. and p.r.n. 2. DuoNeb q.i.d. and p.r.n. 3. Xanax 0.5. 4. Pulmicort. 5. Tussionex. 6. Lovenox. 7. Lasix. 8. Humalog. 9. Claritin. 10.Solu-Medrol. 11.Mirapex. 12.Aldactone. PHYSICAL EXAM: Patient is alert, oriented x3. Pulse is 102, blood pressure 130/60, respiration 20, temperature 98.2, pulse ox 94% on 4 L. HEENT conjunctivae normal. Oral mucosa moist. Neck is no jugular venous distention. No carotid bruit. No lymph node enlargement. Cardiovascular system: S1, S2 muffled. No S3, no S4. Respiratory: Breath sounds diminished in the bases. A few scattered rhonchi and crackles. ABDOMEN: Soft, nontender. No mass palpable. Legs no edema no swelling. Central nervous system: No focal deficits. LABORATORY DATA: WBC 9.5, otherwise ABGs noted and glucose 131, CK-MB is noted. ASSESSMENT: 1. Chronic obstructive pulmonary disease acute exacerbation with acute purulent tracheobronchitis. 2. History of nicotine dependence. 3. History of anxiety, depression. 4. Restless leg syndrome. 5. Chronic hypoxic respiratory failure. RECOMMENDATIONS AND DISCUSSION: I recommend to continue current medications. Symptomatic treatment. Optimize the bronchodilator treatment. I would also recommend taper the IV steroids to prednisone and continue to monitor with Dr. Capellan. DVT prophylaxis and continue with antibiotics. Prognosis guarded. Discussed with the patient. further recommendations to follow. The patient with severe COPD with the gold stage IV COPD with baseline FEV1 26% of predicted. Continue to monitor. CLAU / MINH: [id number] /
[2017-09-11] MEDS: predniSONE 20 MG TAB PO SCH (16:10)
[2017-09-11 17:04] LABS: Glucose,Whole Blood 132 mg/dL (75-99)
[2017-09-11 21:16] LABS: Glucose,Whole Blood 149 mg/dL (75-99)
[2017-09-11 22:09] VITALS: RESP 18
[2017-09-12] MEDS: IPRATROPIUM-ALBUTEROL 3 ML NEB INHALATION SCH ×3 (03:56→12:27)
[2017-09-12] MEDS: CHLORPHEN-HYDROcod 8-10mg/5ml 5 ML ORAL.SYRG PO SCH (07:13)
[2017-09-12 07:14] LABS: Glucose,Whole Blood 120 mg/dL (75-99)
[2017-09-12] MEDS: INSULIN LISPRO (humaLOG) 300 UNIT/3 ML VIAL SQ SCH ×2 (07:17→12:56)
[2017-09-12] MEDS: BUDESONIDE 1 MG/2 ML NEBU INHALATION SCH (07:24)
[2017-09-12] MEDS: ENOXAPARIN 40 MG/0.4 ML SYRINGE SQ SCH (08:06)
[2017-09-12] MEDS: PRAMIPEXOLE 0.5 MG TAB PO SCH (08:06)
[2017-09-12] MEDS: FUROSEMIDE 10 MG/ML 4 ML VIAL IV SCH (08:06)
[2017-09-12] MEDS: predniSONE 20 MG TAB PO SCH (08:06)
[2017-09-12] MEDS: LACTOBACILLUS ACIDOPH & BULGAR 1 EACH PACKET PO SCH (08:06)
[2017-09-12] MEDS: LORATADINE 10 MG TAB PO SCH (08:06)
[2017-09-12] MEDS: SPIRONOLACTONE 25 MG TAB PO SCH (08:06)
[2017-09-12 08:13] VITALS: BP 125/58; TEMP 98.2
--- NOTE | 2017-09-12 10:18 | P.PN ---
<Padmini Valdez M - Last Filed: 09/12/17 10:11> Subjective Progress Note Date: 09/12/17 Principal diagnosis: Severe COPD with a baseline FEV1 of 26% of predicted 72-year-old female patient with severe COPD and chronic hypoxic respiratory failure, chronic hypercapnic respiratory failure, cor pulmonale with previous history of right-sided heart failure.. The patient is an FEV1 of 26% of predicted. The patient is coming in to the hospital because of increased fluid overload and lower extremities edema. Overnight the patient received Lasix 40 mg IV every 8 hours and her lower extremities edema has improved significantly. CAT scan of the abdomen and pelvis was done. It showed some mild diverticulosis. There is no evidence of any ascites or any other abnormalities. She has cushingoid features. She is on the prednisone 5 mg by mouth daily basis. She has required multiple steroid treatments over the years for COPD exacerbation and that made her white obese and cushingoid. She has also gained weight. She has history of skin cancer and glaucoma. She probably is a CO2 retainer knowing that she has a chronic metabolic alkalosis with a bicarb level in the serum of 36. A based on blood gas has not been done. She claims that she has a CPAP/BiPAP machine at home which she hasn't been using on a regular basis. On 09/10/2017 the patient is being seen in follow-up. She is still being diuresis with IV Lasix. Electrodes are not out yet. Meanwhile she has lost a kilogram of weight which is probably fluids. Echocardiogram showed a preserved LV function. No evidence of any pulmonary hypertension. The patient also brought in her respiratory assisted device at home and this rubber turner to be a Trilogy ventilator which is set in avaps mode. The target tidal volume is 400. The patient is using a Phyllis review full face mask. This was approved to her on the basis of her chronic hypercapnic respiratory failure due to recurrent COPD exacerbation. Her blood. This showed a well compensated chronic hypercapnic respiratory failure with a pCO2 of 51. On 09/11/2017 patient is complaining of increased shortness of breath with activity and even eating. Her lungs sounds show decreased air entry bilaterally , but no rhonchi, no wheezing, no rails. Patient did not have any significant diuresis with the Lasix, in fact she is +338 in the last 24 hours. Yesterday we decreased the Lasix to once daily due to evidence of volume contraction alkalosis on BMP from 09/10/2017. CO2 was up to 39, with B UN of 30 and creatinine of 0.77. She did not wear her Trilogy ventilator last night despite our recommendation. She is currently sitting up in bed, does not appear to be short of breath with normal conversation. She denies any sputum production. Currently on 4 L oxygen per nasal cannula with O2 saturations around 91-96%. He has been afebrile through the night. On 09/12/2017 patient states her respiratory status is about the same, with no significant improvement. She still complains of being short of breath with exertion. She still has the loose nonproductive cough, not able to expectorate any phlegm. She is a -603 mL fluid balance over the last 24 hours her bilateral lower leg edema has considerably improved. No blood work done this morning. Lung sounds diminished air entry bilaterally, but no rhonchi, no wheezes, no rails. No febrile episodes last night. She is sitting up in bed, in no acute distress, she states she is not able to wear her Trilogy ventilator at night due to an uncomfortable full face mask. She was instructed to follow-up in the sleep center with Dr. Capellan regarding the possibility of nasal pillow mask for her Trilogy ventilator. She is wearing 4 L oxygen with O2 sats of 93-97%. Objective - Vital Signs Vital signs: Vital Signs Temp 98.2 F 09/12/17 07:00 Pulse 88 09/12/17 07:42 Resp 18 09/12/17 07:00 BP 125/58 09/12/17 07:00 Pulse Ox 93 L 09/12/17 07:00 Intake & Output 09/11/17 09/12/17 09/12/17 18:59 06:59 18:59 Output Total 602 1 Balance -602 -1 Output: Urine 600 Stool 2 1 Other: Voiding Method Bedside Commode Bedside Commode # Voids 3 1 - Exam Morbidly obese, cushingoid features, calm and comfortable, not in acute distress or distress. She is arousable. She is awake and alert and she is following commands and answering questions.Head exam was generally normal. There was no scleral icterus or corneal arcus. Mucous membranes were moist. Neck is short and supple and the patient is a significant crowding of the posterior oropharynx with a Mallampati class IV. Lung sounds are diminished bilaterally with no wheezes, no rhonchi, no rales . No dullness to percussion. No crackles. Heart sounds are positive for S1-S2, no cervical murmurs appreciated.Cardiac exam revealed the PMI to be normally situated and sized. The rhythm was regular and no extrasystoles were noted during several minutes of auscultation. The first and second heart sounds were normal and physiologic splitting of the second heart sound was noted. There were no murmurs, rubs, clicks, or gallops.Abdominal exam revealed normal bowel sounds. The abdomen was soft, non-tender, and without masses, organomegaly, or appreciable enlargement of the abdominal aorta. The patient has a tiny umbilical hernia. Extremities reveal trace edema and there is no cyanosis or clubbing. Neurologically patient is awake and alert and there is no focal neurological deficit.Examination of the skin revealed no evidence of significant rashes, suspicious appearing nevi or other concerning lesions. Skeletal examination shows no arthritis or joint deformities - Labs CBC & Chem 7: 09/08/17 18:40 09/11/17 07:14 Labs: Abnormal Lab Results - Last 24 Hours (Table) 09/11/17 09/11/17 09/11/17 Range/Units 11:18 16:51 20:16 POC Glucose (mg/dL) 131 H 132 H 149 H (75-99) mg/dL 09/12/17 Range/Units 07:09 POC Glucose (mg/dL) 120 H (75-99) mg/dL Microbiology - Last 24 Hours (Table) 09/08/17 18:40 Blood Culture - Preliminary Blood No Growth after 72 hours Assessment and Plan Plan: Assessment and Plan Plan: Assessment 1 severe COPD with a baseline FEV1 of 26% of predicted consistent with advanced/ severe COPD 2 chronic hypoxic respiratory failure 3 chronic hypercapnic respiratory failure, rule out a component of CO2 narcosis , the blood gases was obtained showed no evidence of any acute hypercapnic respiratory failure and the findings are essentially chronic well compensated hypercapnic respiratory failure. 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 Lung sounds are with diminished air entry bilaterally but no wheezes, no rhonchi or rales. Continue with DuoNeb, Pulmicort nebulizer treatments. No significant sputum production, no JVD, bilateral lower leg edema has improved. We will discontinue the Lasix. Follow-up appointment with Dr. Ramirez set up. Patient is to follow-up with Dr. Capellan in the sleep center regarding the fitting of the facemasks for her trilogy ventilator. Further adjustments will be done outpatient basis. I think she would benefit from a nasal pillow instead of a full face mask. Echocardiogram was noted. She has advanced COPD with an FEV1 of 26% of predicted. She has chronic hypercapnic respiratory failure with compensated status based on the blood gases. I performed a history & physical examination of the patient and discussed their management with my nurse practitioner, Padmini Valdez. I reviewed the nurse practitioner's note and agree with the documented findings and plan of care. <Harrison Capellan - Last Filed: 09/12/17 16:06> Objective - Vital Signs Vital signs: Vital Signs Temp 98.2 F 09/12/17 07:00 Pulse 88 09/12/17 12:37 Resp 18 09/12/17 08:00 BP 125/58 09/12/17 07:00 Pulse Ox 93 L 09/12/17 07:00 Intake & Output 09/11/17 09/12/17 09/12/17 18:59 06:59 18:59 Intake Total 1080 Output Total 602 1 Balance -602 -1 1080 Intake: Oral 1080 Output: Urine 600 Stool 2 1 Other: Voiding Method Bedside Commode Bedside Commode Bedside Commode # Voids 3 1 3 - Labs CBC & Chem 7: 09/08/17 18:40 09/11/17 07:14 Labs: Abnormal Lab Results - Last 24 Hours (Table) 09/11/17 09/11/17 09/12/17 Range/Units 16:51 20:16 07:09 POC Glucose (mg/dL) 132 H 149 H 120 H (75-99) mg/dL 09/12/17 Range/Units 11:24 POC Glucose (mg/dL) 131 H (75-99) mg/dL Microbiology - Last 24 Hours (Table) 09/08/17 18:40 Blood Culture - Preliminary Blood No Growth after 72 hours Assessment and Plan Plan: Joint evaluation was done along with a nurse practitioner. I'm seeing this patient in follow-up H is feeling better. Her lower symmetry edema is completely subsided. My recommendations for this patient is to go home on a combination of Perforomist and Pulmicort neb last treatment twice a day, Lasix 40 mg twice a day, Aldactone 25 mg by mouth daily. Follow-up with Dr. Milian in the office next week for COPD. I may be able to make adjustments on her mask interface and given a nasal pillow regarding her AVAPS machine
[2017-09-12 11:56] LABS: Glucose,Whole Blood 131 mg/dL (75-99)
[2017-09-12 12:38] VITALS: PULSE 88
[2017-09-12] MEDS: PRAMIPEXOLE 1 MG TAB PO SCH (12:58)
--- NOTE | 2017-09-12 19:27 | P.DS ---
Providers Date of admission: 09/08/17 21:54 Attending physician: Wale Stein Consults: 09/09/17 12:57 Consult Physician Routine Consulting Provider: Larry Ramirez Reason/Comments: sob Do you want consulting provider notified?: Already Contacted Primary care physician: [facility] [place] [facility] Course: This 78-year-old woman with a past medical history multiple medical problems being followed by Dr. Tiffanie Jiang in the outpatient setting was admitted with COPD acute exacerbation as well as acute purulent tracheobronchitis. Patient was treated with bronchodilators and steroid. Dr. Capellan saw the patient. Patient improved significantly. Patient be discharged in a stable condition with guarded prognosis with further plans to follow-up with the primary and as well as primary physician in the outpatient setting. On exam vitals are stable. Cardio S1 and S2 normal. Abdomen soft nontender. Respirator system few scattered rhonchi and crackles. Final diagnosis 1. COPD acute exacerbation with acute and acute bronchitis. 2. History and nicotine dependence. 3. History of anxiety depression. 4. Restless leg syndrome. 6. Chronic hypoxic respiratory failure. Patient Condition at Discharge: Stable Plan - Discharge Summary New Discharge Prescriptions: New predniSONE 10 mg PO DIRECTED #30 tab CHLORPHEN-HYDROcod 8-10mg/5ml [Tussionex] 5 ml PO Q12HR #60 ml Furosemide [Lasix] 40 mg PO BID #1 tablet Continue Pramipexole [Mirapex] 1 mg PO BID Loratadine [Claritin] 10 mg PO DAILY Spironolactone [Aldactone] 25 mg PO BID Pramipexole [Mirapex] 0.5 mg PO QAM Budesonide-Formot 160-4.5 Mcg [Symbicort 160-4.5 Mcg Inhaler] 2 puff INHALATION RT-BID Albuterol Inhaler [Ventolin Hfa Inhaler] 2 puff INHALATION RT-Q6H PRN PRN Reason: Shortness Of Breath ALPRAZolam [Xanax] 0.25 mg PO TID PRN PRN Reason: Anxiety L.acidoph,Paracasei, B.lactis [Probiotic] 1 cap PO DAILY Ipratropium-Albuterol Nebulize [Duoneb 0.5 mg-3 mg/3 ml Soln] 3 ml INHALATION RT-TID #0 predniSONE 5 mg PO DAILY #0 Discharge Medication List ALPRAZolam [Xanax] 0.25 mg PO TID PRN 09/08/17 [History] Albuterol Inhaler [Ventolin Hfa Inhaler] 2 puff INHALATION RT-Q6H PRN 09/08/17 [ History] Budesonide-Formot 160-4.5 Mcg [Symbicort 160-4.5 Mcg Inhaler] 2 puff INHALATION RT-BID 09/08/17 [History] L.acidoph,Paracasei, B.lactis [Probiotic] 1 cap PO DAILY 09/08/17 [History] Loratadine [Claritin] 10 mg PO DAILY 09/08/17 [History] Pramipexole [Mirapex] 0.5 mg PO QAM 09/08/17 [History] Pramipexole [Mirapex] 1 mg PO BID 09/08/17 [History] Spironolactone [Aldactone] 25 mg PO BID 09/08/17 [History] CHLORPHEN-HYDROcod 8-10mg/5ml [Tussionex] 5 ml PO Q12HR #60 ml 09/12/17 [Rx] Furosemide [Lasix] 40 mg PO BID #1 tablet 09/12/17 [Rx] Ipratropium-Albuterol Nebulize [Duoneb 0.5 mg-3 mg/3 ml Soln] 3 ml INHALATION RT -TID #0 09/12/17 [Rx] predniSONE 5 mg PO DAILY #0 09/12/17 [Rx] predniSONE 10 mg PO DIRECTED #30 tab 09/12/17 [Rx] Follow up Appointment(s)/Referral(s): Larry Ramirez DO [Doctor of Osteopathic Medicine] - 09/17/17 2:30 pm Venkata Quarles MD [Primary Care Provider] - 09/16/17 10:30 am Ambulatory/Diagnostic Orders: Complete Blood Count w/diff [LAB.AMB] Time Frame: 3 Days, Location: Determined By Patient Patient Instructions/Handouts: Prednisone (By mouth), Hydrocodone/ Chlorpheniramine (By mouth), COPD (Chronic Obstructive Pulmonary Disease) (DC), Edema (DC) Activity/Diet/Wound Care/Special Instructions: Pending Pulm. clearance [facility] - [phone] DIet: cardiac Activity: limited Till F/U Discharge Disposition: HOME SELF-CARE
== END 2017-09-12 15:35 | disposition home health service (06) | DRG 315 ==
LOC: EC 17:04 → 5MS5E 21:54
PROVIDERS: ADMIT Hospitalist; ATTEND Hospitalist
DX: I27.81 Cor pulmonale (chronic) (principal); J44.1 Chronic obstructive pulmonary disease with (acute) exacerbation; J96.11 Chronic respiratory failure with hypoxia; E87.3 Alkalosis; E24.2 Drug-induced Cushing's syndrome; J96.12 Chronic respiratory failure with hypercapnia; J44.0 Chronic obstructive pulmonary disease with (acute) lower respiratory infection; I50.9 Heart failure, unspecified; J20.9 Acute bronchitis, unspecified; Z99.81 Dependence on supplemental oxygen; E66.9 Obesity, unspecified; T38.0X5A Adverse effect of glucocorticoids and synthetic analogues, initial encounter; H40.9 Unspecified glaucoma; K42.9 Umbilical hernia without obstruction or gangrene; K57.90 Diverticulosis of intestine, part unspecified, without perforation or abscess without bleeding; G25.81 Restless legs syndrome; F41.8 Other specified anxiety disorders; Z79.51 Long term (current) use of inhaled steroids; Z79.52 Long term (current) use of systemic steroids; Z79.899 Other long term (current) drug therapy; Z87.891 Personal history of nicotine dependence; Z85.828 Personal history of other malignant neoplasm of skin; Z68.32 Body mass index [BMI] 32.0-32.9, adult; Z71.3 Dietary counseling and surveillance
CPT/HCPCS: 36415; 36600; 71020; 74000; 74177; 80048; 80053; 81003; 82550; 82553; 82805; 83036; 83735; 83880; 84484; 85025; 85379; 85610; 85730; 87040; 93005; 93306; 94640; 96361; 96374; 96375; 96376; 99285